=== PATIENT | female | born 2000 | race Caucasian/White ===

== ENCOUNTER 2025-04-23 16:18 | Emergency (ER) | payer MEDICAID ==
[~2025-04-23] VITALS: Ht 175.3 cm; Wt 83.6 kg
[2025-04-23 16:22] VITALS: BP 149/97; PULSE 80; TEMP 97.7; O2SAT 100
--- NOTE | 2025-04-23 18:28 | Physician Documentation ---
History of Present Illness ~ Chief Complaint: Heat Related Stated Complaint: "I THINK I HAVE HEAT EXHAUSTION Time Seen by MD: 16:46 Source: patient, family Mode of Arrival: POV HPI 25 yof p/w nausea and flushing. [place] has not been drinking water. Feels hot. Not vomiting. LMP last week. Medication Reconciliation Allergies: Coded Allergies: No Known Allergies (Unverified , 04/23/25) Past Medical History Last Menstrual Period: Apr 16, 2025 Review of Systems All Other Systems at this time: Reviewed and Negative Constitutional: Denies: chills, fever Respiratory: Denies: cough, orthopnea, shortness of breath, SOB with exertion, SOB at rest Cardiovascular: Denies: chest pain Gastrointestinal: Reports: nausea; Denies: abdominal pain, vomiting, diarrhea, constipated Physical Exam Vital Signs: Temperature: 97.7, Source: Oral, Heart Rate: 80, Respiratory Rate: 18, BP: 149/97, Pulse Oximetry: 100, Weight: 83.600 Physical Exam well appearing no distress moist mucous membranes ctab abd soft nt. skin pwd awake alert oriented Progress Progress Note recheck at 626 she has resolved symptoms after zofran and cup of ice water. She does not want to do upt as she does not think she can be . Results/Orders Results/Orders Orders - GANESH LEDESMA MD Hcg, Ur Ql (04/23/25 18:12) Vital Signs 04/23/25 04/23/25 16:22 17:12 Temp 97.7 Pulse 80 Resp 18 B/P (MAP) 149/97 Pulse Ox 100 Medical Decision Making Differential Dx:Considerations: Include: Heat cramps, Heat exhaustion, Heat stoke Departure Disposition: HOME / SELF CARE / HOMELESS Impression: Primary Impression: Heat exhaustion Qualified Codes: T67.5XXA - Heat exhaustion, unspecified, initial encounter Additional Instructions: stay cool and hydrate aggressively the rest of the day. Return if you have reoccurrence of your symptoms. Referrals: NO PRIMARY CARE PROVIDER (PCP) Signature Scribe Signature: na Attestation: GANESH Urbano MD Apr 23, 2025 18:28
[2025-04-23 18:52] VITALS: RESP 18
== END 2025-04-23 18:53 | disposition home or self-care (01) ==
LOC: ER 16:18
DX: T67.5XXA Heat exhaustion, unspecified, initial encounter (principal); X58.XXXA Exposure to other specified factors, initial encounter; Y93.89 Activity, other specified; Y92.89 Other specified places as the place of occurrence of the external cause; Y99.8 Other external cause status
CPT/HCPCS: 99282; J7030